=== PATIENT | female | born 1970 | race Caucasian/White ===

== ENCOUNTER → 2016-04-16 | Outpatient (CLI) | payer BC ==
[~2016-04-16] MED LIST: ACET-1256 PO; CLIN1GEL TOP; MTR600X PO; MULT-506 PO; NORE1TAB50 PO; OXYC-57 PO; VITACAP26 PO
--- NOTE | 2016-04-17 13:02 | MAMMOGRAPHY REPORT ---
BILATERAL DIGITAL SCREENING MAMMOGRAM TOMOSYNTHESIS WITH CAD: 04/16/2016 CLINICAL HISTORY: Routine screening. Patient has no complaints. TECHNIQUE: Breast tomosynthesis in addition to standard 2D mammography was performed. Current study was also evaluated with a Computer Aided Detection (CAD) system. COMPARISON: Comparison is made to exams dated: 07/10/2014 mammogram and 12/06/2012 [place] [facility] [place]yn Mcdaniels. BREAST COMPOSITION: The tissue of both breasts is heterogeneously dense, which may obscure small ma sses. FINDINGS: There is a grouping of benign-appearing coarse calcifications in the upper outer quadrant of the right breast. No suspicious mass, architectural distortion or cluster of microcalcification s is seen. IMPRESSION: ACR BI-RADS CATEGORY 1: NEGATIVE There is no mammographic evidence of malignancy. A 1 year screening mammogram is recommended. The p atient will receive written notification of the results. Approximately 10% of breast cancers are not detected with mammography. A negative mammographic repor t should not delay biopsy if a clinically suggestive mass is present. Stephie Mccain M.D. ay/:04/16/2016 16:46:50 Note Taker: Julissa CHUN(Lavinia)(M), [facility] letter sent: Normal 1/2 BI-RADS Code: ACR BI-RADS Category 1: Negative
== END | disposition home or self-care (01) ==
LOC: C.MAMM 08:29
PROVIDERS: ATTEND Obstetrics & Gynecology
DX: Z12.31 Encounter for screening mammogram for malignant neoplasm of breast (principal)

== ENCOUNTER → 2016-08-29 | Outpatient (CLI) | payer BC | END | disposition home or self-care (01) | LOC: C.LAB 12:03 | PROVIDERS: ATTEND Obstetrics & Gynecology | DX: Z86.14 Personal history of Methicillin resistant Staphylococcus aureus infection (principal) ==

== ENCOUNTER 2016-08-31 05:32 | Observation (INO) | payer BC ==
--- NOTE | 2016-08-14 11:41 | PAT Medication Instructions ---
Service Date Aug 14, 2016. Current Home Medication List Acetaminophen (Tylenol), 2 TAB PO Q6 PRN for Headache Clindamycin Phosphate (Topical (Cleocin-T), 1 APPLN TOP BID Multivitamin (Multivitamin), 1 TAB PO QAM Norethindrone (Contraceptive) (Norethindrone), 1 TAB PO QAM Vitamins C & E (Vitamin C), 1 CAP PO QAM Medication Instructions For Your Scheduled Surgery - Check with surgeon for instructions: Norethindrone (Contraceptive) (Norethindrone), 1 TAB PO QAM - Hold the following medications 24 hours prior to surgery: Clindamycin Phosphate (Topical (Cleocin-T), 1 APPLN TOP BID - Hold the following medications the morning of surgery: Vitamins C (Vitamin C), 1 CAP PO QAM Multivitamin (Multivitamin), 1 TAB PO QAM - Take the following medications the morning of surgery with a sip of water: Acetaminophen (Tylenol), 2 TAB PO Q6 PRN for Headache (if needed) - Take the following medications as scheduled the night before surgery: Acetaminophen (Tylenol), 2 TAB PO Q6 PRN for Headache (if needed) If you have any questions please call us at [phone] or [phone] or [phone]
[2016-08-14 12:11] LABS: BASO % 0.1 %; BASO ABS # 0.01 K/uL (0-0.2); COMPLETE YES; HEMATOCRIT 42.6 % (37-47); IG% 0.1 %; LYMPH % 29.5 %; LYMPH ABS # 1.98 K/uL (1.2-3.4); MEAN CELL VOLUME 90.1 fL (80-100); MEAN CORPUSCULAR HEMOGLOBIN 30.9 pg (25-34); MEAN CORPUSCULAR HGB CONC 34.3 g/dl (32-36); MEAN PLATELET VOLUME 8.9 fL (7.4-10.4); NEUT % 61.3 %; PLATELET COUNT 352 K/uL (130-400); RED BLOOD COUNT 4.73 M/uL (4.2-5.4); WHITE BLOOD COUNT 6.71 K/uL (4.8-10.8)
[2016-08-14 13:39] LABS: BUN/CREATININE RATIO 15.7 (10-20); CALCIUM 9.1 mg/dl (8.5-10.1); CREATININE 0.68 mg/dl (0.60-1.20)
[~2016-08-31] VITALS: Ht 172.7 cm; Wt 60.3 kg
[2016-08-31] VITALS (11 sets, daily range): BP systolic 126–157; BP diastolic 83–103; PULSE 60–89; TEMP 36.5–37.1; O2SAT 97–100; Ht 172.7 cm; Wt 60.3 kg
[~2016-08-31 05:32] MED LIST changes: -MTR600X PO; -OXYC-57 PO
[2016-08-31] MEDS ORDERED: LACTATED RINGER'S 1000ML 1,000 ML IV SCH ×2 (06:00→09:17)
[2016-08-31] MEDS ORDERED: CEFAZOLIN 2000 MG/60 ML D5W IV SCH (06:00)
[2016-08-31] MEDS ORDERED: SCOPOLAMINE 1.5 MG TDSY TD ONE ×2 (06:50→07:00)
[2016-08-31] MEDS ORDERED: METHYLENE BLUE 0.5% 10 ML VIAL ONE (06:56)
[2016-08-31] MEDS ORDERED: BUPIVACAINE 0.5 % 5 MG/1 ML MPF 30ML VIAL ONE (06:56)
[2016-08-31] MEDS ORDERED: HYDROmorphone INJ 2 MG/ML SYR/VIAL ONE (07:00)
[2016-08-31] MEDS ORDERED: KETAMINE HCL INJ 50 MG/ML 10 ML VIAL ONE (07:00)
[2016-08-31] MEDS ORDERED: SCOPOLAMINE 1.5 MG TDSY TD SCH (07:00)
[2016-08-31] MEDS ORDERED: MIDAZOLAM HCL 1 MG/ML 2ML VIAL ONE (07:00)
[2016-08-31] MEDS ORDERED: FENTANYL CITRATE INJ 50 MCG/1 ML 2 ML VIAL ONE (07:00)
--- NOTE | 2016-08-31 07:12 | History & Physical Bridge Note ---
H&P Re-Evaluation Bridge Note: I have examined the patient, reviewed the History & Physical and in the interval since the performance of the History & Physical I have noted the following changes of clinical significance: No changes noted
[2016-08-31] MEDS ORDERED: ONDANSETRON INJ 2 MG/ML 2 ML VIAL IV PRN ×2 (08:15→09:30)
[2016-08-31] MEDS ORDERED: FENTANYL CITRATE INJ 50 MCG/1 ML 2 ML VIAL IV PRN (08:15)
[2016-08-31] MEDS ORDERED: HYDROmorphone INJ 1 MG/ML SYR IV PRN (08:15)
[2016-08-31] MEDS ORDERED: EpHEDrine SULFATE INJ 50 MG/ML AMP IV PRN (08:15)
[2016-08-31] MEDS ORDERED: ATROPINE SULFATE 0.1 MG/ML 5ML SYR IV PRN (08:15)
[2016-08-31] MEDS ORDERED: NEOSTIGMINE METHYLSULFATE 5 MG/5 ML SYR ONE (08:23)
[2016-08-31] MEDS ORDERED: LIDOCAINE HCL 2% 2 ML VIAL (20MG/ML) ONE (08:23)
[2016-08-31] MEDS ORDERED: PROPOFOL IV EMULSION 10 MG/ML 20 ML VIAL IV ONE (08:23)
[2016-08-31] MEDS ORDERED: PHENYLEPHRINE 100MCG/ML 5ML SYR ONE (08:23)
[2016-08-31] MEDS ORDERED: DEXAMETHASONE SOD INJ 4 MG/ML VIAL ONE (08:23)
[2016-08-31] MEDS ORDERED: GLYCOPYRROLATE INJ 0.2 MG/ML VIAL ONE (08:23)
[2016-08-31] MEDS ORDERED: DiphenhydrAMINE HCL 50 MG/ML VIAL ONE (08:23)
[2016-08-31] MEDS ORDERED: ONDANSETRON INJ 2 MG/ML 2 ML VIAL ONE (08:23)
[2016-08-31] MEDS ORDERED: METOCLOPRAMIDE HCL INJ 5 MG/ML 2 ML VIAL ONE (08:23)
[2016-08-31] MEDS ORDERED: EpHEDrine SULFATE 50MG/5ML SYR ONE (09:16)
--- NOTE | 2016-08-31 09:29 | [facility] Operative Report ---
Operative Report Operative Date Aug 31, 2016. Pre-Operative Diagnosis Dysmenorrhea, menorrhagia Post-Operative Diagnosis Dysmenorrhea, menorrhagia, endometriosis Procedure(s) Performed Robotic-assisted Total Laparoscopic Hysterectomy, bilateral salpingectomy, left oopherectomy cystoscopy Surgeon Dr. Oseguera [employer] Surgeon(s) . Estimated Blood Loss 20mL Findings Patient was given a general anesthetic and prepped and draped in dorsal lithotomy position in yellowfin James stirrups IV Ancef given his of note the patient did have a mild rash on her back she had received other anesthetic medications but there certainly was a possibility that the patient has a mild reaction to Ancef and this will be discussed post operatively. Zeng catheter was placed in her bladder V care sewn into her cervix uterus was retroverted. Glove change a supraumbilical incision made with scalpel and using direct Edgar technique we cut down through subcutaneous fat through the fascia splitting the rectus muscles and entering the peritoneal cavity without difficulty. Blunt tipped Edgar trocar and port placed balloon inflated to maintain stability of port CO2 gas used to insufflate the abdomen. Findings upper abdomen normalvisceral organ injury deep Trendelenburg position was obtained Findings there was a significant adhesion of the left uterosacral to the entire back wall of the uterus pictures were taken for documentation in fact the whole left ovary was tied up into this along with the left fallopian tube. The right ovary appeared normal there was no other significant endometriosis seen but I felt strongly that endometriosis was involved in the left uterosacral attachment to the uterus. Bladder flap was normal. 2 robotic ports on the right side placed one on the left under direct visualization left upper quadrant 11 mm accessory port placed under direct visualization. Robot docked arm #1 became monopolar terell in arm #2 became bipolar [place] arm #3 became pro grasp uterine manipulator used to identify the left side we did a ureteral lysis of the left ureter. 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 We identified the left ovarian artery and vein coagulated this proximal to the left ovary staying well away from the ureter and cut this with monopolar terell. Same process with the round ligament was skeletonized and the uterine vessels on the side bladder flap was identified and then finally coagulated the left uterine vessels after making a bladder flap. These were then cut. Same process repeated on the right side I was able to fully dissect away the bladder flap. I was unable to release the adhesion posteriorly of the uterus and left uterosacral. We were well away from the bowel and the ureter had been lysed and was well lateral of this. Colpotomy was then made with the monopolar terell and started anteriorly we then continued this around to complete the colpotomy. Uterus was then pulled along with the left ovary should be noted we removed the right fallopian tube through the accessory port earlier. Uterus was removed and a sponge in a glove was placed for pneumoperitoneum At this stage methylene blue dye was given by anesthesia. Cuff appeared reasonably hemostatic. 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 Using a 2-0 V LOC 90 day suture to close the cuff from left to right back right to left taking at least full 1 cm vaginal Cossette thickness bites. Suture was cut so there was no tail needle removed to the excess report after generous irrigation and suction bleeding was minimal. Cystoscopy was performed by removing the Zeng catheter using normal saline as her solution identified the bladder was normal no sign of endometriosis note damage or sutures noted and good strong jets of blue dye from left and right ureter openings. Cystoscope removed and the Zeng catheter placed the sponge in the glove had been removed at the finish of closure of the cuff. We then went back to the robot to manipulate the Tisseel spray to the cuff the uterine vessels and the ovarian pedicles. Should be noted that we irrigated and suctioned prior to this. Instruments removed robot undocked ports removed gas allowed to escape all in ports injected with 0.5% Marcaine fascia closed carefully in the umbilical and left upper quadrant incision skin closed with 40 subcutaneous Jackson Monocryl and Dermabond applied sponge and isthmic counts correct minimal vaginal bleeding in the case and urine was clearish to blue as expected. Specimens A: uterus, cervix, bilateral fallopian tubes, left ovary Drains Zeng Anesthesia General Complication(s) None Disposition Recovery Room / PACU I attest to the content of the Intraoperative Record and any orders documented therein. Any exceptions are noted below.
[2016-08-31] MEDS ORDERED: PROMETHAZINE HCL INJ 25 MG in SODIUM CHLORIDE 0.9% 50ML 50 ML IV PRN (09:30)
[2016-08-31] MEDS ORDERED: PROMETHAZINE HCL INJ 12.5 MG in SODIUM CHLORIDE 0.9% 50ML 50 ML IV PRN (09:30)
[2016-08-31] MEDS ORDERED: MEPERIDINE HCL 50 MG/ML CARP IV PRN ×2 (09:30)
[2016-08-31] MEDS ORDERED: BISACODYL 10 MG SUPP PR PRN (09:30)
[2016-08-31] MEDS ORDERED: OXYC-57 PO (09:30)
[2016-08-31] MEDS ORDERED: OXYCODONE/ACETAMINOPHEN 5-325 TAB PO PRN (09:30)
[2016-08-31] MEDS ORDERED: ZOLPIDEM TARTRATE 5 MG TAB PO PRN (09:30)
[2016-08-31] MEDS ORDERED: ACETAMINOPHEN 325 MG TAB PO PRN (09:30)
[2016-08-31] MEDS ORDERED: MTR600X PO (09:30)
[2016-08-31] MEDS ORDERED: MAGNESIUM HYDROXIDE SUSP 30 ML UDC PO PRN (09:30)
--- NOTE | 2016-08-31 09:31 | Discharge Instructions ---
Discharge Instructions Date of Service Aug 31, 2016. Admission Reason for Admission: Menorrhagia Discharge Discharge Diagnosis / Problem: Menorrhagia Discharge Goals Goal(s): Routine recovery after surgery Activity Recommendations Activity Limitations: per Instructions/Follow-up section . Instructions / Follow-Up Instructions / Follow-Up POST OPERATIVE: BOWEL FUNCTION/MEDICATIONS: 1. Constipation pain and discomfort are the most common complaints 5-7 days after surgery. Points 2-6 address the things that can help. 2. Chewing gum can help stimulate the gut and help improve digestion and motility. 3. Milk of Magnesia 1-2 times per day until return of bowel function. 4. Colace is a stool softener that helps. Taking this 2-3 times per day until bowel function returns to normal is highly recommended. 5. Dulcolax is a laxative that may be used if several days have passed without a bowel movement. Alternatively Miralax may be used daily instead. 6. Drink plenty of fluids as this will also reduce constipation. 7. Narcotic pain medications will be prescribed by your physician. They are safe to use and we encourage you to use them. If you are not allergic, ibuprofen will also be prescribed. Many patients will be able to transition off of the narcotic medications to ibuprofen by postoperative day 3. ACTIVITY RECOMMENDATIONS: 1. Get plenty of rest and listen to your body. If you are tired, take a nap. 2. You may shower, but do not take a tub bath until you see your doctor at the 2 week post operative visit. 3. Absolutely NO intercourse and nothing in the vagina until you are examined by your doctor at the 6 week visit. At that visit it will be determined when such activities can be resumed. This can range from 6-12 weeks after your surgery depending on healing time. 4. The main physical activity in the first week should be walking. By the second week you can slowly increase activity. There are no limits on walking up and down stairs. 5. Do not lift more than 5-10 lbs for 4 weeks. Remember the "one-handed rule", i.e. if you can lift something with only one hand it's likely okay. 6. Minimize egg caser like vacuuming and exercising for 4 weeks. "Overdoing it" can lead to incisions not healing, pain and vaginal bleeding , so again, listen to your body. 7. Driving can be resumed when you feel able. Do not drive within 24 hours of taking a narcotic medication. EXPECTATIONS: 1. Vaginal spotting, bleeding and discharge are common after surgery. There may even be an odor to the discharge which is often related to sutures used in the vagina. If you experience heavy vaginal bleeding, call the office number day or night [phone]. 2. Bladder discomfort is common after surgery from the catheter. This usually resolves in 1-2 weeks. 3. By the end of the 3rd or 4th week you should be feeling much better. It may take up to 6 weeks for your energy levels to return to normal. 4. Narcotic medications have side effects such as: dizziness, headache, nausea and/or vomiting. If you suspect your pain medication is causing problems, call our office and we may be able to prescribe an alternate medication. 5. The skin incisions are often covered with a liquid bandage. This will gradually peel off over time. CALL THE OFFICE IF YOU HAVE ANY OF THE FOLLOWIN. Temperature of 101 degrees or higher. 2. Severe abdominal or pelvic pain not relieved by pain medication. 3. Persistent nausea or vomiting. 4. Increased pain with urination or difficulty urinating. 5. Bright red bleeding that soaks more than 1 pad per hour. CONTACT PHONE NUMBERS: Main Office: [phone] Surgical Nurse: [phone] extension [phone] Avoid all tobacco products. If you need help to stop smoking, call [place]'s FREE QUITLINE at . This is a free call. Current Hospital Diet Patient's current hospital diet: Discharge Diet Recommended Diet: Regular Diet Procedures Procedures Performed: Robotic-assisted Total Laparoscopic Hysterectomy, bilateral salpingectomy, left oopherectomy cystoscopy Pending Studies Studies pending at discharge: no Medical Emergencies . Who to Call and When: Medical Emergencies: If at any time you feel your situation is an emergency, please call 911 immediately. . Non-Emergent Contact Non-Emergency issues call your: Claim Inspector . . "Provider Documentation" section prepared by Corbin Oseguera. . VTE Core Measure Inpt VTE Proph given/why not?: Axel De Guzman, [facility]
--- NOTE | 2016-08-31 10:04 | Anesthesiology Progress Note ---
Anesthesia Post Op Note Date & Time Aug 31, 2016 at 10:04 Vital Signs Pain Intensity: 1 Vital Signs Past 12 Hours Date Time Temp Pulse Resp B/P (MAP) Pulse Ox O2 Delivery O2 Flow Rate FiO2 08/31/16 09:56 Nasal Cannula 3 08/31/16 09:33 36. 65 16 116/83 100 Mask 10 08/31/16 05:51 36.9 89 18 157/103 (121) 97 Room Air Notes Mental Status: alert / awake / arousable, participated in evaluation Pt Amnestic to Procedure: Yes Nausea / Vomiting: adequately controlled Pain: adequately controlled Airway Patency, RR, SpO2: stable & adequate BP & HR: stable & adequate Hydration State: stable & adequate Anesthetic Complications: no major complications apparent
[2016-08-31] MEDS ORDERED: LARYING-O-JET KIT (LTA) ONE ×2 (10:41)
[2016-08-31] MEDS: KETOROLAC TROMETHAMINE 30 MG/ML VIAL IV. PRN ×2 (10:48→19:54)
[2016-08-31] MEDS ORDERED: IV FLUIDS COMPLETED PRN (13:45)
[2016-08-31] MEDS: SIMETHICONE 80 MG CHEW PO PRN ×2 (14:58→21:08)
[2016-08-31] MEDS: CHECK SCOPOLAMINE PATCH PLACEMENT SCH ×2 (16:00→23:11)
[2016-08-31] MEDS: DOCUSATE SODIUM 100 MG CAP PO SCH (19:53)
[2016-08-31 20:04] LABS: HEMATOCRIT 40.6 % (37-47)
[2016-08-31] MEDS ORDERED: DOCUSATE SODIUM 100 MG CAP PO SCH (21:00)
[2016-09-01] MEDS: IBUPROFEN 600 MG TAB PO PRN ×2 (03:52→09:07)
[2016-09-01] MEDS: OXYCODONE/ACETAMINOPHEN 5-325 TAB PO PRN ×2 (03:52→09:06)
[2016-09-01 04:00] VITALS: BP 140/94; PULSE 83; TEMP 36.6; O2SAT 98
[2016-09-01 07:22] LABS: BASO % 0.1 %; BASO ABS # 0.01 K/uL (0-0.2); COMPLETE YES; EOS % 0.2 %; HEMATOCRIT 39.4 % (37-47); IG% 0.3 %; LYMPH % 16.5 %; LYMPH ABS # 2.53 K/uL (1.2-3.4); MEAN CELL VOLUME 88.3 fL (80-100); MEAN CORPUSCULAR HEMOGLOBIN 29.6 pg (25-34); MEAN CORPUSCULAR HGB CONC 33.5 g/dl (32-36); MONO % 8.3 %; NEUT % 74.6 %; PLATELET COUNT 311 K/uL (130-400); RED BLOOD COUNT 4.46 M/uL (4.2-5.4); WHITE BLOOD COUNT 15.37 K/uL (4.8-10.8)
[2016-09-01 07:25] VITALS: BP 148/101; PULSE 60; TEMP 36.5; O2SAT 99
[2016-09-01] MEDS: DOCUSATE SODIUM 100 MG CAP PO SCH (07:30)
[2016-09-01] MEDS: CHECK SCOPOLAMINE PATCH PLACEMENT SCH (07:30)
[2016-09-01] MEDS: SIMETHICONE 80 MG CHEW PO PRN (07:30)
--- NOTE | 2016-09-01 08:01 | Progress Note ---
Progress Note Date of Service Sep 01, 2016. Progress Note Postoperative day #1 Subjective patient doing well ambulating tolerating oral diet passing flatus no vaginal bleeding no extremity pain. Objective vital signs stable afebrile chest exam clear abdomen exam benign incisions clean dry intact extremity exam negative Assessment and plan meets criteria discharged home instructions given Percocet and Motrin
--- NOTE | 2016-09-01 08:04 | Discharge Summary ---
Discharge Summary Date of Service Sep 01, 2016. Discharge Summary Patient had a total laparoscopic hysterectomy and LSO on 08/31/2016. By postop day #1 she met discharge criteria. She was ambulating tolerating oral diet oral pain medication she had no bleeding no extremity pain and no other concerns Physical exam vital signs stable afebrile incisions clean dry and intact abdomen soft extremity exam negative Impression and plan these criteria discharged home on Percocet and Motrin
[2016-09-01 09:13] VITALS: BP 148/101; PULSE 60; TEMP 36.5; O2SAT 99
== END 2016-09-01 09:45 | disposition home or self-care (01) ==
LOC: C.ACU 05:32 → C.MS4N 06:00 → ENRESERV 10:17
PROVIDERS: ADMIT Obstetrics & Gynecology; ATTEND Obstetrics & Gynecology
DX: N80.0 Endometriosis of uterus (principal); N73.6 Female pelvic peritoneal adhesions (postinfective); D27.1 Benign neoplasm of left ovary; E78.00 Pure hypercholesterolemia, unspecified; G43.909 Migraine, unspecified, not intractable, without status migrainosus; Z79.899 Other long term (current) drug therapy

== ENCOUNTER → 2017-04-18 | Outpatient (CLI) | payer OTHER ==
[~2017-04-18] MED LIST changes: +MTR600X PO; +OXYC-57 PO
--- NOTE | 2017-04-19 14:43 | MAMMOGRAPHY REPORT ---
BILATERAL DIGITAL SCREENING MAMMOGRAM TOMOSYNTHESIS WITH CAD: 04/18/2017 CLINICAL HISTORY: Routine screening. Patient has no complaints. TECHNIQUE: Breast tomosynthesis in addition to standard 2D mammography was performed. Current study was also evaluated with a Computer Aided Detection (CAD) system. COMPARISON: Comparison is made to exams dated: 04/16/2016 mammogram - [facility], mammogram, and 12/06/2012 mammogram - [facility] [place] Alexis Mcdaniels. BREAST COMPOSITION: The tissue of both breasts is heterogeneously dense, which may obscure small mas ses. FINDINGS: There is a 6 mm circumscribed mass in the upper outer middle one third of the right breast, that is stable in size dating back to at least 12/06/2012. 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 No new suspicious mass, archi tectural distortion or cluster of microcalcifications is seen. IMPRESSION: ACR BI-RADS CATEGORY 1: NEGATIVE There is no mammographic evidence of malignancy. A 1 year screening mammogram is recommended. The pa tient will receive written notification of the results. Approximately 10% of breast cancers are not detected with mammography. A negative mammographic report should not delay biopsy if a clinically suggestive mass is present. Stephie Mccain M.D. ay/:04/18/2017 19:18:10 Head Grease Maker: Julissa Etienne, [facility] letter sent: Normal 1/2 BI-RADS Code: ACR BI-RADS Category 1: Negative
== END | disposition home or self-care (01) ==
LOC: C.MAMM 08:30
PROVIDERS: ATTEND Obstetrics & Gynecology
DX: Z12.31 Encounter for screening mammogram for malignant neoplasm of breast (principal)

== ENCOUNTER 2017-06-03 09:55 | Emergency (ER) | payer OTHER ==
[~2017-06-03] VITALS: Ht 172.7 cm; Wt 56.3 kg
[2017-06-03 09:58] VITALS: TEMP 36.8; Ht 172.7 cm; Wt 56.3 kg
[2017-06-03] MEDS ORDERED: KETOROLAC TROMETHAMINE 30 MG/ML VIAL IV STA (10:21)
[2017-06-03] MEDS ORDERED: ONDANSETRON INJ 2 MG/ML 2 ML VIAL IV STA (10:21)
[2017-06-03] MEDS ORDERED: DICYCLOMINE HCL 10 MG CAP PO ONE (10:30)
[2017-06-03] MEDS ORDERED: RANI150T85 PO (10:31)
[2017-06-03] MEDS ORDERED: MISCCAP80 PO (10:31)
[2017-06-03] MEDS ORDERED: TRAZ50TA35 PO (10:31)
--- NOTE | 2017-06-03 10:51 | DIAGNOSTIC IMAGING REPORT ---
CHEST ONE VIEW PORTABLE HISTORY: Generalized abdominal pain. Nausea. COMPARISON: None. FINDINGS: The lungs are clear. Cardiac silhouette is normal in size. No pleural effusions. No pneumothorax. IMPRESSION: No acute process. Electronically signed by: Michael Macias M.D. 06/03/2017 10:49 AM Dictated Date/Time: 06/03/2017 10:48 AM
[2017-06-03 10:53] LABS: BASO % 0.2 %; BASO ABS # 0.02 K/uL (0-0.2); EOS % 0.2 %; EOS ABS # 0.02 K/uL (0-0.5); HEMATOCRIT 43.3 % (37-47); HEMOGLOBIN 15.1 g/dL (12.0-16.0); IG# 0.03 K/uL (0.00-0.02); LYMPH % 13.9 %; LYMPH ABS # 1.43 K/uL (1.2-3.4); MEAN CELL VOLUME 89.1 fL (80-100); MEAN CORPUSCULAR HEMOGLOBIN 31.1 pg (25-34); MEAN CORPUSCULAR HGB CONC 34.9 g/dl (32-36); MEAN PLATELET VOLUME 9.3 fL (7.4-10.4); MONO % 9.5 %; MONO ABS # 0.98 K/uL (0.11-0.59); NEUT % 75.9 %; PLATELET COUNT 295 K/uL (130-400); RED CELL DISTRIBUTION WIDTH CV 12.1 % (11.5-14.5); RED CELL DISTRIBUTION WIDTH SD 39.1 fL (36.4-46.3); WHITE BLOOD COUNT 10.28 K/uL (4.8-10.8)
[2017-06-03 11:07] LABS: ALBUMIN 4.3 gm/dl (3.4-5.0); CALCIUM 9.7 mg/dl (8.5-10.1); CREATININE 0.8 mg/dl (0.60-1.20); POTASSIUM 3.6 mmol/L (3.5-5.1)
[2017-06-03 11:10] LABS: TOTAL PROTEIN 7.5 gm/dl (6.4-8.2)
[2017-06-03] MEDS ORDERED: DICY10CA55 PO (13:06)
[2017-06-03 13:24] VITALS: BP 148/105; PULSE 81; O2SAT 95
--- NOTE | 2017-06-03 13:45 | EMERGENCY ROOM VISIT NOTE ---
History Report prepared by Monae: Javier Mayer Under the Supervision of: Dr. Diaz Rutledge D.O. First contact with patient: 10:17 Chief Complaint: ABDOMINAL PAIN Stated Complaint: STOMACH PAIN, NAUSEA History of Present Illness The patient is a 46 year old female who presents to the Emergency Room with complaints of intermittent upper abdominal pain beginning a few days ago. The patient has had problems with intermittent abdominal pain for the past few years , but states that her pain has been getting worse. She is scheduled to see GI later this month. She has a history of hysterectomy. The patient's pain is worsened with eating. She also complains of nausea. She denies vomiting, diarrhea, constipation, or urinary symptoms. The patient began taking Ranidine last week. She notes that she recently started Trazodone as well due to difficulty sleeping. Source of History: patient Onset: A few days ago Position: abdomen (upper) Timing: intermittent Modifying Factors (Worsening): eating Associated Symptoms: + nausea, No vomiting, No diarrhea, No urinary symptoms Note: Negative: constipation. Review of Systems See HPI for pertinent positives & negatives. A total of 10 systems reviewed and were otherwise negative. Past Medical & Surgical Medical Problems: (1) Endometriosis (2) Menorrhagia (3) Pelvic pain Family History No pertinent family history stated. Social History Smoking Status: Former Smoker Current/Historical Medications Scheduled Dicyclomine Hcl (Bentyl), 1 CAP PO TID Multivitamin (Multivitamin), 1 TAB PO QAM Probiotic Product (Probiotic), 1 CAP PO DAILY Ranitidine (Zantac), 150 MG PO BID Trazodone Hcl (Trazodone), 50 MG PO HS Scheduled PRN Acetaminophen (Tylenol), 2 TAB PO Q6 PRN for Headache Ibuprofen (Ibuprofen), 600 MG PO Q6H PRN for Pain,EMERSON,cramping,or fever Allergies Coded Allergies: Sulfa Antibiotics (Verified Allergy, Unknown, RASH, 08/31/16) Physical Exam Vital Signs Date Time Temp Pulse Resp B/P (MAP) Pulse Ox O2 Delivery O2 Flow Rate FiO2 06/03/17 13:24 81 18 148/105 95 Room Air 06/03/17 11:49 80 17 151/101 98 Room Air 06/03/17 09:58 36.8 87 18 153/99 99 Room Air Physical Exam CONSTITUTIONAL/VITAL SIGNS: Reviewed / noted above. GENERAL: Non-toxic in appearance. INTEGUMENTARY: Warm, dry, and [place]. HEAD: Normocephalic. EYES: without scleral icterus or trauma. ENT/OROPHARYNX: clear and moist. LYMPHADENOPATHY/NECK: Is supple without lymphadenopathy or meningismus. RESPIRATORY: Lungs clear and equal. CARDIOVASCULAR: Regular rate and rhythm. GI/ABDOMEN: Soft. No organomegaly or pulsatile mass. No rebound or guarding. Normal bowel sounds. Tenderness to the epigastric area. EXTREMITIES: Warm and well perfused. BACK: No CVA tenderness. NEUROLOGICAL: Intact without focal deficits. PSYCHIATRIC: normal affect. MUSCULOSKELETAL: Normally developed with good muscle tone. Medical Decision & Procedures ER Provider Diagnostic Interpretation: Radiology results as stated below per my review and radiologist interpretation: CHEST ONE VIEW PORTABLE FINDINGS: The lungs are clear. Cardiac silhouette is normal in size. No pleural effusions. No pneumothorax. IMPRESSION: No acute process. Electronically signed by: Michael Macias M.D. 06/03/2017 10:49 AM Laboratory Results 06/03/17 10:40 Red Blood Count 4.86, Mean Corpuscular Volume 89.1, Mean Corpuscular Hemoglobin 31.1, Mean Corpuscular Hemoglobin Concent 34.9, Mean Platelet Volume 9.3, Neutrophils (%) (Auto) 75.9, Lymphocytes (%) (Auto) 13.9, Monocytes (%) (Auto) 9.5, Eosinophils (%) (Auto) 0.2, Basophils (%) (Auto) 0.2, Neutrophils # (Auto) 7.80, Lymphocytes # (Auto) 1.43, Monocytes # (Auto) 0.98, Eosinophils # (Auto) 0.02, Basophils # (Auto) 0.02 06/03/17 10:40 Test 06/03/17 10:15 06/03/17 10:40 Urine Color YELLOW Urine Appearance CLEAR (CLEAR) Urine pH 7.0 (4.5-7.5) Urine Specific Ralph 1.010 (1.000-1.030) Urine Protein NEG (NEG) Urine Glucose (UA) NEG (NEG) Urine Ketones NEG (NEG) Urine Occult Blood TRACE (NEG) Urine Nitrite NEG (NEG) Urine Bilirubin NEG (NEG) Urine Urobilinogen NEG (NEG) Urine Leukocyte Esterase NEG (NEG) Urine WBC (Auto) 1-5 /hpf (0-5) Urine RBC (Auto) 0-4 /hpf (0-4) Urine Hyaline Casts (Auto) 1-5 /lpf (0-5) Urine Epithelial Cells (Auto) >30 /lpf (0-5) Urine Bacteria (Auto) NEG (NEG) Urine Test NEG (NEG) White Blood Count 10.28 K/uL (4.8-10.8) Red Blood Count 4.86 M/uL (4.2-5.4) Hemoglobin 15.1 g/dL (12.0-16.0) Hematocrit 43.3 % (37-47) Mean Corpuscular Volume 89.1 fL (80-100) Mean Corpuscular Hemoglobin 31.1 pg (25-34) Mean Corpuscular Hemoglobin Concent 34.9 g/dl (32-36) Platelet Count 295 K/uL (130-400) Mean Platelet Volume 9.3 fL (7.4-10.4) Neutrophils (%) (Auto) 75.9 % Lymphocytes (%) (Auto) 13.9 % Monocytes (%) (Auto) 9.5 % Eosinophils (%) (Auto) 0.2 % Basophils (%) (Auto) 0.2 % Neutrophils # (Auto) 7.80 K/uL (1.4-6.5) Lymphocytes # (Auto) 1.43 K/uL (1.2-3.4) Monocytes # (Auto) 0.98 K/uL (0.11-0.59) Eosinophils # (Auto) 0.02 K/uL (0-0.5) Basophils # (Auto) 0.02 K/uL (0-0.2) RDW Standard Deviation 39.1 fL (36.4-46.3) RDW Coefficient of Variation 12.1 % (11.5-14.5) Immature Granulocyte % (Auto) 0.3 % Immature Granulocyte # (Auto) 0.03 K/uL (0.00-0.02) Anion Gap 10.0 mmol/L (3-11) Est Creatinine Clear Calc Drug Dose 79.8 ml/min Estimated GFR () 103.9 Estimated GFR (Non- 89.7 BUN/Creatinine Ratio 12.5 (10-20) Calcium Level 9.7 mg/dl (8.5-10.1) Total Bilirubin 1.0 mg/dl (0.2-1) Direct Bilirubin 0.2 mg/dl (0-0.2) Aspartate Amino Transf (AST/SGOT) 13 U/L (15-37) Alanine Aminotransferase (ALT/SGPT) 17 U/L (12-78) Alkaline Phosphatase 63 U/L (45-117) Total Protein 7.5 gm/dl (6.4-8.2) Albumin 4.3 gm/dl (3.4-5.0) Lipase 128 U/L (73-393) Laboratory results as stated above per my review. Medications Administered Medications (Trade) Dose Ordered Sig/Jeanette Route Start Time Stop Time Status Last Admin Dose Admin Ondansetron HCl (Zofran Inj) 4 mg NOW STAT IV 06/03/17 10:21 06/03/17 10:24 DC 06/03/17 10:53 4 MG Ketorolac Tromethamine (Toradol Inj) 30 mg NOW STAT IV 06/03/17 10:21 06/03/17 10:24 DC 06/03/17 10:53 30 MG Dicyclomine HCl (Bentyl Cap) 10 mg NOW ONCE PO 06/03/17 10:30 06/03/17 10:31 DC 06/03/17 10:52 10 MG ED Course 1019: Previous medical records were reviewed. The patient was evaluated in room A2. A complete history and physical examination was performed. 1021: Ordered Toradol Inj 30 mg IV, Zofran Inj 4 mg IV. 1030: Ordered Bentyl Cap 10 mg PO. 1306: On reevaluation, the patient is resting comfortably. I discussed the results and findings with the patient. She verbalized agreement of the treatment plan. The patient was discharged home. Medical Decision Differential considered: pancreatitis, hepatitis, or acute cholecystitis, AAA, UTI, pyelonephritis, kidney stones, appendicitis, diverticulitis, shingles, bowel obstruction mesenteric ischemia, intussusception,hernia, testicular torsion, ovarian torsion, ruptured ovarian cyst,ectopic , . This is a 46-year-old female who presents to the ED with a chief complaint of upper abdominal pain in the epigastric area. She states that is been going on for years but recently it has been worse over the past couple of days. She actually has had this for a couple of weeks and has an appointment scheduled for June [address] josé antonio Price from GI. The patient reports a past history of hysterectomy. She reports associated nausea with her symptoms but no vomiting. Most of her symptoms seem to be aggravated with eating. The patient was started on ranitidine for her symptoms by her PCP. She has been on this for a few days. The patient's vital signs here are stable. She is mildly hypertensive. This is likely situational. The patient's physical exam revealed some mild tenderness the epigastric area. She was treated with IV Toradol, IV Zofran and IV Bentyl. The patient states that her symptoms have subsided. Her blood work was unremarkable including CBC, chemistry panel, LFTs , urine and a chest x-ray did not show acute disease. The patient was told the results of the test. She will be discharged on Bentyl. She is felt to be stable for discharge. Medication Reconcilliation Current Medication List: was personally reviewed by me Blood Pressure Screening Patient's blood pressure: Elevated blood pressure Blood pressure disposition: Elevated BP felt to be situational Impression Primary Impression: Epigastric abdominal pain Scribe Attestation The scribe's documentation has been prepared under my direction and personally reviewed by me in its entirety. I confirm that the note above accurately reflects all work, treatment, procedures, and medical decision making performed by me. Departure Information Dispostion Home / Self-Care Prescriptions Dicyclomine Hcl (BENTYL) 10 Mg Cap 1 CAP PO TID for 30 Days, #30 CAP 1 Refill Prov: Diaz Rutledge D.O. 06/03/17 Referrals No Doctor, Assigned (PCP) Forms Call Back Authorization, HOME CARE DOCUMENTATION FORM, IMPORTANT VISIT INFORMATION Patient Instructions My [facility] Additional Instructions Follow-up with your doctors and GI specialist for further evaluation. Return for worsening or new concerns.
== END 2017-06-03 13:27 | disposition home or self-care (01) ==
LOC: C.EDB 09:57 → C.EDA 13:27
DX: R10.13 Epigastric pain (principal); R11.0 Nausea; Z79.899 Other long term (current) drug therapy; Z87.891 Personal history of nicotine dependence